=== PATIENT | female | born 1980 | race African-American/Black ===

== ENCOUNTER 2020-10-26 14:26 | Emergency (ER) | payer OTHER ==
[~2020-10-26] VITALS: Ht 165.1 cm; Wt 79.4 kg
[2020-10-26 15:09] VITALS: BP 130/84
[2020-10-26] MEDS ORDERED: traMADol HCL 50 MG TAB PO ONE (16:30)
== END 2020-10-26 17:13 | disposition home or self-care (01) ==
LOC: ER 14:26
DX: R51.9 Headache, unspecified (principal)
CPT/HCPCS: 70450